=== PATIENT | female | born 1950 | race Caucasian/White ===

== ENCOUNTER 2019-02-15 05:31 | Day surgery (SDC) | payer MEDICARE, BC ==
[2019-02-12 09:58] VITALS: BMI 26.5
--- NOTE | 2019-02-12 13:45 | HP ---
HISTORY OF PRESENT ILLNESS: This is a 68-year-old female who reports to our office for evaluation of low back and left hip and leg pain. The patient states that she has had back pain for some time, but the leg pain started about 2 months ago. She describes the pain in the left low back, hip, lateral thigh. There is no numbness or tingling. It feels like there is a knife stabbing and shooting down the leg. Things are worse with standing. They ease up if she sits down. Bending, twisting causes sharp pain. The patient has been through physical therapy with no help. Has seen chiropractor. No injections at this time. Tramadol and ibuprofen are used for pain relief. REVIEW OF SYSTEMS: A 10-point review of systems has been completed and is negative other than stated in the above HPI. PAST MEDICAL HISTORY: Arthritis, thyroid disease. SURGICAL HISTORY: Surgery, foot, shoulder x3, gallbladder, double bypass, tonsillectomy. FAMILY HISTORY: Father is , diagnosed with hypertension, heart disease. Mother is alive with diabetes. SOCIAL HISTORY: The patient is a nonsmoker. Drinks alcohol on occasion. Denies drug or sexual activity. MEDICATIONS: 1. Estropipate. 2. Gabapentin. 3. Pramipexole dihydrochloride. 4. Meloxicam. 5. Levothyroxine. ALLERGIES: CLINDAMYCIN, CEPHALEXIN. PHYSICAL EXAMINATION: CONSTITUTIONAL: The patient is well appearing, well nourished, alert. RESPIRATIONS: Normal work of breathing on room air. NEUROLOGIC: Awake, alert, oriented x3. Speech spontaneous and fluent. Normal fund of knowledge. Cranial nerves intact. Lower extremities, 5/5 bilateral strength in hip flexion, knee flexion, knee extension, dorsiflexion, plantarflexion, EHL. Left L2 radiculopathy. Negative single leg raise bilaterally. Hip rotation normal bilateral. Tender to palpate lumbar spine. Deep tendon reflexes diminished bilaterally. Negative Babinski. No clonus. Sensory; light touch, intact. Gait and station; [id number], normal. Normal gait. IMAGING: MRI of the lumbar spine shows stenosis at L1-2. ASSESSMENT AND PLAN: Lumbar degenerative disk disease, lumbar stenosis with neurogenic claudication. Dr. Morrow has offered surgery of lumbar laminectomy. The patient states that she understands the risks and is willing to proceed with surgery. Job ID: [id number]
[2019-02-15] MEDS ORDERED: Bupivacaine HCl 0.5%/Epinephrine 1:200,000/PF 30 ml Vial ONE (06:11)
[2019-02-15] MEDS ORDERED: Sodium Chloride 0.9% 10 ML ONE (06:12)
[2019-02-15] MEDS ORDERED: Thrombin 5000 UNITS/5 ML VIAL ONE (06:12)
[2019-02-15 06:28] LABS: #Basophils 0.1 thou/uL (0.0-0.2); #Eosinphils 0.1 thou/uL (0.0-0.7); #Lymphocytes 3.5 thou/uL (1.20-3.40); #Monocytes 0.5 thou/uL (0.11-0.59); #Neutrophils 2.9 thou/uL (1.40-6.50); %Basophils 0.8 % (0.0-1.0); %Eosinophils 1.8 % (0.0-10.0); %Lymphocytes 49.2 % (21.0-51.0); %Monocytes 7.5 % (0.0-10.0); %Neutrophils 40.7 % (42.0-75.0); Hemoglobin 12.4 g/dL (12.0-16.0); Mean Corpuscular HGB CONC 34.4 g/dL (32.0-36.0); Mean Corpuscular Hemoglobin 32.3 pg (27.0-31.0); Mean Corpuscular Volume 93.9 fL (78.0-98.0); Mean Platelet Volume 7.9 fL (7.4-10.4); Platelet Count 210 thou/uL (130-400); RBC Distribution Width 11.6 % (11.5-14.5); Red Blood Cell (RBC) Count 3.84 mill/uL (4.20-5.40); White Blood Cell (WBC) Count 7.2 thou/uL (4.8-10.8)
[2019-02-15 06:32] LABS: INR-International Normal Ratio 0.9; PTT 27.4 SEC (22.9-36.1)
[2019-02-15 06:48] LABS: Anion Gap 12 mmol/L (10-20); BUN (Urea Nitrogen) 15 mg/dL (9.8-20.1); Calc. Creatinine Clearance 71 mL/min (70-130); Calcium 9.5 mg/dL (7.8-10.44); Carbon Dioxide 28 mmol/L (23-31); Chloride 103 mmol/L (98-107); Estimated GFR-MDRD 72; Glucose 78 mg/dL (80-115); Potassium 4.3 mmol/L (3.5-5.1); Sodium 139 mmol/L (136-145)
[2019-02-15] MEDS ORDERED: Fentanyl 100 MCG/2 ML VIAL ONE ×2 (06:53→09:57)
[2019-02-15] MEDS ORDERED: Lidocaine 1% PF 5 ML VIAL ONE (09:43)
[2019-02-15] MEDS ORDERED: Dexamethasone 20 MG/5 ML VIAL ONE (09:43)
[2019-02-15] MEDS ORDERED: Rocuronium Bromide 10 MG/ML (10ML VIAL) ONE (09:43)
[2019-02-15] MEDS ORDERED: PROPOFOL 200 MG/20 ML VIAL ONE (09:43)
[2019-02-15] MEDS ORDERED: ePHEDrine/0.9% NaCl/PF SYRINGE 50 mg/10 ml ONE (09:43)
[2019-02-15] MEDS ORDERED: Ondansetron PF 4 MG/2 ML Vial ONE (09:43)
[2019-02-15] MEDS ORDERED: Glycopyrrolate 0.2 MG/ML 5 ML SYRINGE ONE (09:43)
[2019-02-15] MEDS ORDERED: HYDROmorphone 2 MG/ML VIAL SLOW IVP PRN (09:44)
[2019-02-15] MEDS ORDERED: Ondansetron HCl/PF 4 MG/2 ML Vial IVP PRN (09:44)
[2019-02-15] MEDS ORDERED: PACU-Morphine 4MG/ML VIAL SLOW IVP PRN (09:44)
[2019-02-15] MEDS ORDERED: Promethazine HCl 25 MG/ML VIAL SLOW IVP PRN (09:44)
[2019-02-15] MEDS ORDERED: Promethazine HCl 25 MG/ML VIAL IM PRN (09:44)
[2019-02-15] MEDS ORDERED: Morphine Sulfate 2 MG/ML SYRINGE SLOW IVP PRN (09:44)
--- NOTE | 2019-02-15 10:36 | OP ---
DATE OF PROCEDURE: 02/15/2019 LUMITE INJECTOR: Marla Bhatt PA-C PREOPERATIVE INDICATION: Treat pain and prevent neurological deterioration. PREOPERATIVE DIAGNOSIS: Exophytic facet joint at L1-L2 with resulting spinal stenosis and severe neurogenic claudication. POSTOPERATIVE DIAGNOSIS: Exophytic facet joint at L1-L2 with resulting spinal stenosis and severe neurogenic claudication. PROCEDURE PERFORMED: Decompressive laminectomy, medial facetectomy, foraminotomy, L1-L2, and microsurgical resection of hemorrhagic synovial cyst, L1-L2, operating microscope. PREOPERATIVE MEDICATION: Vancomycin 1 g IV. DRAIN NUMBER: Zero. DRAIN TYPE: None. DESCRIPTION OF PROCEDURE: The patient was brought to the operating room. General endotracheal anesthesia was induced. The patient was positioned prone on the operating table with the chest and hips supported by gel-filled chest rolls. A lateral fluoro radiograph was used to plan our incision. The lumbar skin was sterilely prepped and draped. We opened our incision with a 10 blade knife and controlled bleeding with bipolar cautery. We used monopolar cautery to dissect through subcutaneous tissues to the thoracodorsal fascia. We incised the fascia in the midline and reflected the paraspinal muscles off the spinous process and lamina of the L1 and L2. A lateral fluoro radiograph was used to confirm the levels upon which we were operating. We then placed a self-retaining retractor. With Adson rongeur, we removed the spinous process of L1 and the superior portion of L2. On the left side of the facet joint, there was hemorrhagic material within the cystic structure coming from the facet joint outside the spine and inside the spinal canal. Multiple fragments were collected for histopathology. Using Kerrison rongeurs, we widened our laminectomy defect until we were flushed with the medial portion of the pedicles at L1 and L2. We identified normal dura above and below the large cystic structure in the epidural space. This was densely adherent to the back of the dura and containing hemorrhagic material on the inside. The operative microscope was brought into the field. Under microscopic magnification using microsurgical techniques, this dark red to black chronic hemorrhage was removed, and all the hemorrhagic material and cyst wall were sent for histopathology. At the completion of the removal of the lesion, the dura was very well decompressed. We ensured with a Lovell ball probe that the L1 and L2 nerve root foramina were widely patent. We performed foraminotomies where necessary. We irrigated with bacitracin irrigation. We controlled bleeding with gentle bipolar cautery and waxed the bone edges. We infused local anesthetic in the paraspinal muscles. We closed the wound in anatomical layers and applied a sterile dressing. This was a clean case, no contamination. Job ID: [id number]
== END 2019-02-15 14:00 | disposition home or self-care (01) ==
LOC: SDC 05:31
PROVIDERS: ATTEND Neurological Surgery
PROC: 01NB0ZZ Release Lumbar Nerve, Open Approach (ICD-10-PCS; principal; 2019-02-15)
DX: M48.062 Spinal stenosis, lumbar region with neurogenic claudication (principal); M71.38 Other bursal cyst, other site; M51.16 Intervertebral disc disorders with radiculopathy, lumbar region; M19.90 Unspecified osteoarthritis, unspecified site; E07.9 Disorder of thyroid, unspecified; Z79.1 Long term (current) use of non-steroidal anti-inflammatories (NSAID); Z79.899 Other long term (current) drug therapy; Z88.1 Allergy status to other antibiotic agents; Z95.1 Presence of aortocoronary bypass graft
CPT/HCPCS: 76000; 80048; 85025; 85610; 85730; 88305; 88311; J0670; J1100; J2001; J2405; J2704; J3010; J3370; J3490

== ENCOUNTER 2020-07-17 05:30 | Inpatient (IN) | payer MEDICARE, BC ==
[2020-07-14 10:26] VITALS: BMI 27.4
[2020-07-17] MEDS ORDERED: Bupivacaine PF 0.5% 30 ML VIAL ONE (06:10)
[2020-07-17] MEDS ORDERED: Thrombin 5000 UNITS/5 ML VIAL ONE (06:10)
[2020-07-17] MEDS ORDERED: EPINEPHrine 1 MG/ML AMP ONE (06:10)
[2020-07-17 06:26] LABS: #Basophils 0.1 thou/uL (0.0-0.2); #Eosinphils 0.1 thou/uL (0.0-0.7); #Lymphocytes 3.1 thou/uL (1.20-3.40); #Monocytes 0.7 thou/uL (0.11-0.59); #Neutrophils 3.3 thou/uL (1.40-6.50); %Basophils 1.7 % (0.0-1.0); %Eosinophils 1.3 % (0.0-10.0); %Lymphocytes 42.4 % (21.0-51.0); %Monocytes 9.6 % (0.0-10.0); Hemoglobin 13.3 g/dL (12.0-16.0); Mean Corpuscular HGB CONC 33.2 g/dL (32.0-36.0); Mean Corpuscular Hemoglobin 31.8 pg (27.0-31.0); Mean Corpuscular Volume 95.8 fL (78.0-98.0); Mean Platelet Volume 8.6 fL (7.4-10.4); Platelet Count 209 thou/uL (130-400); RBC Distribution Width 11.6 % (11.5-14.5); Red Blood Cell (RBC) Count 4.18 mill/uL (4.20-5.40); White Blood Cell (WBC) Count 7.2 thou/uL (4.8-10.8)
[2020-07-17] MEDS ORDERED: Vancomycin 1 GM/200 ML BAG ONE (06:31)
[2020-07-17 06:32] LABS: INR-International Normal Ratio 0.9; PTT 28.4 sec (22.9-36.1); Prothrombin Time 12.5 sec (12.0-14.7)
[2020-07-17] MEDS ORDERED: Fentanyl 250 MCG/5 ML VIAL ONE (06:39)
[2020-07-17] MEDS ORDERED: Albumin 5% 500 ML ONE (06:39)
[2020-07-17 06:44] LABS: Anion Gap 15 mmol/L (10-20); BUN (Urea Nitrogen) 18 mg/dL (9.8-20.1); Calc. Creatinine Clearance 72 mL/min (70-130); Calcium 10.2 mg/dL (7.8-10.44); Carbon Dioxide 26 mmol/L (23-31); Chloride 103 mmol/L (98-107); Glucose 84 mg/dL (83-110); Potassium 4.4 mmol/L (3.5-5.1); Sodium 140 mmol/L (136-145)
[2020-07-17] MEDS ORDERED: PROPOFOL 200 MG/20 ML VIAL ONE (07:10)
[2020-07-17] MEDS ORDERED: Rocuronium Bromide 10 MG/ML (10ML VIAL) ONE (07:10)
[2020-07-17] MEDS ORDERED: Vecuronium 10 MG VIAL ONE (07:10)
[2020-07-17] MEDS ORDERED: ePHEDrine Sulfate 50 MG/10 ML VIAL ONE (07:10)
[2020-07-17] MEDS ORDERED: Ondansetron PF 4 MG/2 ML Vial ONE (07:10)
[2020-07-17] MEDS ORDERED: Lidocaine 1% PF 5 ML VIAL ONE (07:10)
[2020-07-17] MEDS ORDERED: PHENYLEPHRINE-NS 100 MCG/ML 10 ML SYRINGE ONE (07:10)
[2020-07-17] MEDS ORDERED: Dexamethasone 20 MG/5 ML VIAL ONE (07:10)
[2020-07-17] MEDS ORDERED: Mineral Oil Sterile 10ML 10 ML UDCUP ONE (09:14)
[2020-07-17] MEDS ORDERED: SUGAMMADEX SODIUM 200 MG/2 ML VIAL ONE (12:52)
[2020-07-17] MEDS ORDERED: HYDROmorphone 2 MG/ML VIAL ONE (12:54)
[2020-07-17] MEDS ORDERED: diphenhydrAMINE 50 MG/ML VIAL IVP PRN (13:20)
[2020-07-17] MEDS ORDERED: HYDROcodone/Acetaminophen 10/325 mg Tablet PO PRN ×2 (13:20)
[2020-07-17] MEDS ORDERED: Acetaminophen/Codeine 30-300mg Tablet PO PRN (13:20)
[2020-07-17] MEDS ORDERED: Promethazine HCl 12.5 MG SUPP PR PRN (13:20)
[2020-07-17] MEDS ORDERED: Ondansetron PF 4 MG/2 ML Vial IVP PRN (13:20)
[2020-07-17] MEDS ORDERED: Morphine 2 MG/ML VIAL SLOW IVP PRN (13:20)
[2020-07-17] MEDS ORDERED: Mag-Al 1200 mg/1200 mg/30 ML UDCUP PO PRN (13:20)
[2020-07-17] MEDS ORDERED: diphenhydrAMINE 25 MG CAP PO PRN (13:20)
[2020-07-17] MEDS ORDERED: Promethazine 25 MG TAB PO PRN (13:20)
[2020-07-17] MEDS ORDERED: Prochlorperazine 10 MG/2 ML VIAL IM PRN (13:20)
[2020-07-17] MEDS ORDERED: Promethazine HCl 25 MG/ML VIAL IM PRN ×2 (13:20→13:29)
[2020-07-17] MEDS ORDERED: Milk Of Magnesia 30 ML UDCUP PO PRN (13:20)
[2020-07-17] MEDS ORDERED: Bisacodyl 10 MG SUPP PR PRN (13:20)
[2020-07-17] MEDS ORDERED: Morphine Sulfate 2 MG/ML SYRINGE SLOW IVP PRN (13:29)
[2020-07-17] MEDS ORDERED: HYDROmorphone 2 MG/ML VIAL SLOW IVP PRN (13:29)
[2020-07-17] MEDS ORDERED: Promethazine HCl 25 MG/ML VIAL SLOW IVP PRN (13:29)
[2020-07-17] MEDS ORDERED: PACU-Morphine 4MG/ML VIAL SLOW IVP PRN (13:29)
[2020-07-17] MEDS ORDERED: Ondansetron HCl/PF 4 MG/2 ML Vial IVP PRN (13:29)
[2020-07-17] MEDS ORDERED: Scopolamine 1.5 mg/72 hour Patch TD SCH (13:30)
[2020-07-17] MEDS ORDERED: Fentanyl 100 MCG/2 ML VIAL ONE (13:45)
[2020-07-17] MEDS: Sodium Chloride 0.9% 1,000 ML IV SCH (17:50)
[2020-07-17] MEDS: Vancomycin 1 GM in Premix Bag 1 BAG IVPB SCH (18:04)
[2020-07-17] MEDS: tiZANidine HCl 4 MG TAB PO PRN (18:06)
[2020-07-17] MEDS ORDERED: Gabapentin 300 MG CAP PO SCH (21:00)
[2020-07-17] MEDS ORDERED: Pramipexole Di-HCl 1 MG TAB PO SCH (21:00)
[2020-07-18] MEDS: Acetaminophen/Codeine 30-300mg Tablet PO PRN ×2 (03:55→13:09)
[2020-07-18] MEDS: Sodium Chloride 0.9% 1,000 ML IV SCH (04:02)
[2020-07-18] MEDS ORDERED: Levothyroxine Sodium 50 MCG TAB PO SCH (06:00)
[2020-07-18] MEDS: Vancomycin 1 GM in Premix Bag 1 BAG IVPB SCH (06:02)
[2020-07-18 07:27] LABS: #Basophils 0.1 thou/uL (0.0-0.2); #Lymphocytes 1.2 thou/uL (1.20-3.40); #Monocytes 0.9 thou/uL (0.11-0.59); #Neutrophils 6.9 thou/uL (1.40-6.50); %Basophils 0.7 % (0.0-1.0); %Eosinophils 0.1 % (0.0-10.0); %Lymphocytes 13.6 % (21.0-51.0); %Neutrophils 75.5 % (42.0-75.0); Hemoglobin 9.2 g/dL (12.0-16.0); Mean Corpuscular HGB CONC 33.1 g/dL (32.0-36.0); Mean Corpuscular Hemoglobin 31.9 pg (27.0-31.0); Mean Corpuscular Volume 96.4 fL (78.0-98.0); Mean Platelet Volume 8.6 fL (7.4-10.4); Platelet Count 154 thou/uL (130-400); RBC Distribution Width 11.6 % (11.5-14.5); White Blood Cell (WBC) Count 9.1 thou/uL (4.8-10.8)
[2020-07-18] MEDS: tiZANidine HCl 4 MG TAB PO PRN (13:09)
[2020-07-18 15:43] VITALS: BP 94/50; TEMP 98.1
== END 2020-07-18 16:00 | disposition home or self-care (01) | DRG 455 ==
LOC: SURG A 05:30 → EDSTATUS 09:24 → SURG B 17:00
PROVIDERS: ADMIT Neurological Surgery; ATTEND Neurological Surgery
PROC: 0SG00AJ Fusion of Lumbar Vertebral Joint with Interbody Fusion Device, Posterior Approach, Anterior Column, Open Approach (ICD-10-PCS; principal; 2020-07-17)
PROC: 0SG0071 Fusion of Lumbar Vertebral Joint with Autologous Tissue Substitute, Posterior Approach, Posterior Column, Open Approach (ICD-10-PCS; 2020-07-17)
PROC: 01NB0ZZ Release Lumbar Nerve, Open Approach (ICD-10-PCS; 2020-07-17)
DX: M54.16 Radiculopathy, lumbar region (principal); E03.9 Hypothyroidism, unspecified; G62.9 Polyneuropathy, unspecified; G25.81 Restless legs syndrome; M19.90 Unspecified osteoarthritis, unspecified site; Z20.822 Contact with and (suspected) exposure to COVID-19; M46.1 Sacroiliitis, not elsewhere classified; Z90.49 Acquired absence of other specified parts of digestive tract; Z95.1 Presence of aortocoronary bypass graft; Z90.89 Acquired absence of other organs; Z88.1 Allergy status to other antibiotic agents
CPT/HCPCS: 36415; 76000; 80048; 85025; 85610; 85730; 93005; 93010; C1713; C1768; J0171; J1100; J1170; J2405; J2704; J3010; J3370; J3490; P9045; S0020